=== PATIENT | female | born 1960 | race Caucasian/White ===

== ENCOUNTER 2021-07-31 13:08 | Emergency (ER) | payer OTHER ==
[~2021-07-31] VITALS: Ht 165.1 cm; Wt 84.1 kg
[2021-07-31 13:20] VITALS: TEMP 98.2
[2021-07-31 15:15] VITALS: BP 124/87; PULSE 68
== END 2021-07-31 15:15 | disposition home or self-care (01) ==
LOC: COL.ER 13:08
DX: S02.2XXA Fracture of nasal bones, initial encounter for closed fracture (principal); S00.531A Contusion of lip, initial encounter; S00.81XA Abrasion of other part of head, initial encounter; Z87.891 Personal history of nicotine dependence; W01.198A Fall on same level from slipping, tripping and stumbling with subsequent striking against other object, initial encounter; Y93.01 Activity, walking, marching and hiking